=== PATIENT | male | born 1970 | race African-American/Black ===

== ENCOUNTER 2023-08-01 12:51 | Inpatient (IN) ==
[2023-08-01] MEDS ORDERED: SODIUM CHLORIDE 0.9% 500 ML IV STA (13:22)
[2023-08-01] MEDS ORDERED: ONDANSETRON INJ 2 MG/ML 2 ML VIAL IV STA (13:22)
--- NOTE | 2023-08-01 13:22 | ED Triage Note ---
Date of Service August 01, 2023 Provider in Triage Author: Gosia Carranza History of Present Illness This patient was briefly evaluated while in triage. An abbreviated physical exam was performed. This patient is a 52-year-old Male who presents to the ED for evaluation of abdominal pain and vomiting since this morning. No fevers. No chest pain or SOB. Denies urinary symptoms. Denies constipation or problems with his BMs. Physical Exam GENERAL: Non-toxic and in no acute distress. HEENT: Pupils equal. No obvious scleral icterus. HEART: Regular rate and rhythm. LUNGS: Clear to auscultation. No accessory muscle use. ABDOMEN: Soft, diffusely tender to palpation over the center of the abdomen. No guarding or rigidity. NEURO: Alert and oriented. No obvious neurological deficits on quick neuro exam. Initial orders for labs and / or imaging were placed and patient was placed in the waiting area until a bed is available. Please see further documentation for the full ED course.
[2023-08-01 14:14] LABS: Basophils # (auto) 0.03 K/uL (0.00-0.20); Basophils % (auto) 0.3 %; Hematocrit (blood only) 47.3 % (42.0-52.0); Immature Granulocytes # (auto) 0.04 K/uL (0.01-0.20); Immature Granulocytes % (auto) 0.4 %; Lymphocytes # (auto) 1.05 K/uL (1.20-3.40); Mean Corpuscular Hemoglobin 28.6 pg (25.0-34.0); Mean Corpuscular Hgb Conc 33.8 g/dL (32.0-36.0); Mean Corpuscular Volume 84.5 fL (80.0-100.0); Mean Platelet Volume 10.5 fL (9.4-12.4); Monocytes # (auto) 0.49 K/uL (0.11-0.59); Monocytes % (auto) 5.1 %; Neutrophils # (auto) 7.91 K/uL (1.40-6.50); Neutrophils % (auto) 83.2 %; Platelet Count 319 K/uL (130-400); RDW Coefficient of Variation 13.1 % (11.5-14.5); RDW Standard Deviation 40.4 fL (36.4-46.3); White Blood Count 9.52 K/ul (4.8-10.8)
[2023-08-01 14:21] LABS: Albumin Globulin Ratio 1.3 (0.9-2); Albumin Level 4.4 gm/dl (3.4-5.0); BUN Creatinine Ratio 10.8 (10-20); Bilirubin,Total 0.7 mg/dl (0.2-1.0); Calcium 9.8 mg/dl (8.6-10.3); Creatinine Clr Calc Pharmacy 60.3 ml/min; Est GFR (African American) 62.2 ml/min; Est GFR (Non-African American) 53.6 ml/min; Globulin 3.4 gm/dl (2.5-4.0); Potassium 3.9 mmol/L (3.5-5.1); Total Protein 7.8 gm/dl (6.0-8.3)
[2023-08-01 14:28] LABS: Troponin I High Sensitivity 4.7 pg/ml (0-20)
--- NOTE | 2023-08-01 14:29 | XRay Report ---
SINGLE VIEW CHEST CLINICAL HISTORY: Generalized abdominal pain. FINDINGS: A PA chest radiograph is obtained. No prior studies are available for comparison at the [facility] of dictation. The cardiomediastinal silhouette is unremarkable. The lungs and pleural spaces are cl ear. No pneumothorax is seen. The bony thorax is grossly intact. IMPRESSION: No active disease in the chest. ACT 112: Negative or not required by law. Electronically signed by: John Flores M.D. 08/01/2023 2:28 PM
[2023-08-01 14:33] LABS: Prothrombin Time 11.3 Seconds (9.0-12.0)
--- NOTE | 2023-08-01 15:20 | Electrocardiogram Report ---
Test Reason : Blood Pressure : / mmHG Vent. Rate : 104 BPM Atrial Rate : 104 BPM P-R Int : 198 ms QRS Dur : 088 ms QT Int : 326 ms P-R-T Axes : 060 051 058 degrees QTc Int : 428 ms Sinus tachycardia Nonspecific T wave abnormality Abnormal ECG No previous ECGs available Confirmed by Truman Avilez ([id number]) on 08/01/2023 3:20:23 PM Referred By: REFERRED SELF Confirmed By:Sharif Avilez
--- NOTE | 2023-08-01 17:37 | CT Scan Report ---
CT OF THE ABDOMEN AND PELVIS WITHOUT CONTRAST CLINICAL HISTORY: Abdominal pain and vomiting. Elevated creatinine. COMPARISON STUDY: No previous studies for comparison. TECHNIQUE: Axial images of the abdomen and pelvis were obtained without IV contrast. Images were revi ewed in the axial, sagittal, and coronal planes. Automated exposure control was utilized for the lauren dy. A dose lowering technique was utilized adhering to the principles of ALARA. FINDINGS: Lung bases are unremarkable. An 8 mm left ureteropelvic junction calculus results in mild t o moderate left hydronephrosis. There is moderate perinephric fluid. A few punctate left renal calcul i are present. There are no right ureteral calculi. Punctate phlebolith adjacent to the distal right ureter is present There is no right hydronephrosis. Evaluation of the remainder of the abdomen and pe lvis is suboptimal on this unenhanced exam. Liver, spleen, adrenal glands and pancreas are unremarkab le. There is no evidence for a bowel obstruction. There is no ascites or lymphadenopathy. IMPRESSION: 1. 8 mm left ureteropelvic junction calculus which results in mild to moderate left hydronephrosis wi th moderate perinephric fluid. 2. Several punctate left renal calculi. ACT 112: Negative or not required by law. Electronically signed by: Haja Bagley M.D. 08/01/2023 5:36 PM
[2023-08-01] MEDS ORDERED: SODIUM CHLORIDE 0.9% 500 ML IV ONE (18:00)
[2023-08-01] MEDS ORDERED: TAMSULOSIN HCL 0.4 MG CAP PO ONE (18:00)
[2023-08-01] MEDS ORDERED: KETOROLAC TROMETHAMINE 15 MG/ML VIAL IV STA (18:00)
--- NOTE | 2023-08-01 18:21 | Emergency Department Note ---
Impression & Plan Obstruction of left ureteropelvic junction due to stone ED Provider Note CHIEF COMPLAINT: Abdominal pain HISTORY OF PRESENTING ILLNESS: This 52-year-old male patient presents to the emergency department for evaluation of abdominal pain and vomiting that started this morning. Pain is worse in the left lower abdomen. No fevers or chills. Denies chest pain or shortness of breath. Denies any urinary symptoms. Denies any constipation or problems with his bowel movements. No previous similar symptoms. He has not taken anything for his symptoms yet. The patient is in town from [place] visiting his aunt for a couple of months. REVIEW OF SYSTEMS: See HPI for pertinent positives and pertinent negatives. ALLERGIES: NKDA MEDICATIONS: None PAST MEDICAL HISTORY: Denies significant past medical or surgical history other than appendectomy. PHYSICAL EXAM: VITALS: Vitals are noted on the nurse's note and reviewed by myself. GENERAL: Non toxic, no acute distress, non-diaphoretic. SKIN: Capillary refill <2 sec. EYES: PERRLA. EOMI. Conjunctivae without injection, sclerae without icterus. NOSE: Patent without discharge. MOUTH: Mucous membranes moist. Uvula midline. Airway patent. NECK: Supple without nuchal rigidity. HEART: Regular rate and rhythm without murmurs gallops or rubs. LUNGS: Clear to auscultation bilaterally without wheezes, rales or rhonchi. No retractions or accessory muscle use. ABDOMEN: Positive bowel sounds x 4. Normal tympanic percussion. Soft, diffusely tender to palpation over the central abdomen. No masses or organomegaly. Collado sign negative. No guarding or rebound tenderness. No CVA tenderness. No focal RLQ or LLQ tenderness. MUSCULOSKELETAL: No gross musculoskeletal defects. NEURO: Patient was alert and oriented. No focal neurological deficits. DIFFERENTIAL DIAGNOSIS: Differential diagnosis includes hepatitis, pancreatitis, cholecystitis, cholelithiasis, appendicitis, kidney stone, pyelonephritis, UTI, gastritis, gastroenteritis, mesenteric adenitis, obstruction, constipation, hernia, abdominal abscess, perforation, diverticulitis, IBD, ischemic colitis, abdominal aortic aneurysm, testicular torsion, prostatitis, or others. ED COURSE AND MEDICAL DECISION MAKING: EKG: EKG was interpreted by myself as sinus tachycardia at 104 bpm with no acute ST or T wave changes. MEDICATIONS GIVEN: A total of 1 L normal saline solution bolus. Zofran 4 mg IV, Toradol 15 mg IV, morphine 4 mg IV, Dilaudid 0.5 mg IV, and Flomax 0.4 mg p.o. INTERPRETATION OF LABS: I interpreted the labs with full lab results as below in the lab section of this note. CBC without leukocytosis, anemia, or thrombocytopenia. PT/INR was normal. Creatinine elevated at 1.48 with no known baseline. Glucose 139. CMP otherwise normal. Lipase normal. High-sensitivity troponin normal. Urinalysis with 1+ ketones, 3+ blood, 1+ proteins, but no evidence for infection. INTERPRETATION OF IMAGING: Imaging studies were interpreted by myself and read by radiology as per the imaging section of this note. Chest x-ray negative for acute cardiopulmonary etiology. CT scan of the abdomen pelvis without contrast showed an 8 mm left ureteropelvic junction calculus which results in mild to moderate left hydronephrosis with moderate perinephritic fluid. Several punctate left renal calculi. CONSULTATIONS: Dr. Valdivia of urology. On-call hospitalist. MDM SUMMARY: The patient was seen during a time of extreme volume and extreme acuity. Nursing triage protocols were initiated with IV lock, labs, and/or imaging studies conducted by protocol in the triage area. The patient was initially evaluated in a triage room and then re-examined once they were taken back to an exam room. Laboratory studies with a mildly elevated creatinine and glucose, but otherwise unremarkable. Chest x-ray was normal. CT scan of the abdomen pelvis showed an 8 mm left ureteropelvic junction calculus with moderate left hydronephrosis. Urinalysis without evidence for infection. The patient was medicated with 1 L normal saline solution bolus, Toradol, morphine, Dilaudid, Zofran, and Flomax. The patient still had some discomfort from the large kidney stone and I feel the patient requires admission for further management of the large stone with inadequate pain control. The patient is from [place], but will be staying locally for the next couple of months visiting his aunt. I spoke with Dr. Valdivia of urology who stated that if the patient's pain could not be controlled, he could be admitted by medicine for pain control and urology could see if they would be able to place a stent tomorrow. The patient is to be n.p.o. after midnight and order was placed. I also placed an order to have his urine strained to collect the stone if he was able to pass it. I spoke with the on-call hospitalist who agreed to admit the patient for further management. The patient was educated on the treatment plan and the discharge instructions. The patient was discharged home in stable condition. DIAGNOSIS: 8 mm left ureteropelvic kidney stone with hydronephrosis Past Med/Surg History Social History Smoking Status: Never smoker Preferred Language: Japanese Feels Safe at Home: Yes Allergies Allergies Allergy/AdvReac Type Severity Reaction Status Date / Time No Known Allergies Allergy Verified 08/01/23 19:46 Home Meds Home Medications Medication Instructions Recorded Confirmed No Known Home Medications 08/01/23 08/01/23 Results & Data (ED) Vital Signs Vital Signs - 24 hr 08/01/23 13:20 08/01/23 17:24 08/01/23 17:40 Temperature 36.8 C Temperature Source Temporal Artery Scan Pulse Rate 107 H Pulse Rate [Finger] 95 H Respiratory Rate 20 18 Respiratory Effort / Characteristics Non-Labored Respiratory Depth Normal Normal Respiratory Pattern Blood Pressure 158/111 H Blood Pressure [Right Arm] 167/116 H Blood Pressure Mean 126 Blood Pressure Mean [Right Arm] 133 Blood Pressure Position [Right Arm] Sitting Pulse Oximetry 98 99 99 Oxygen Delivery Method Room Air Room Air Sepsis Recent Fever Within 48 Hours No Sepsis New/Unexplained Change in Mental Status N/A Sepsis Action Taken by Nursing No Action Required 08/01/23 19:26 Temperature Temperature Source Pulse Rate Pulse Rate [Finger] 99 H Respiratory Rate 14 Respiratory Effort / Characteristics Non-Labored Spontaneous Respiratory Depth Normal Respiratory Pattern Regular Blood Pressure Blood Pressure [Right Arm] 153/87 H Blood Pressure Mean Blood Pressure Mean [Right Arm] 109 Blood Pressure Position [Right Arm] Pulse Oximetry 95 Oxygen Delivery Method Room Air Sepsis Recent Fever Within 48 Hours Sepsis New/Unexplained Change in Mental Status Sepsis Action Taken by Nursing Laboratory Data 08/01/23 13:35 08/01/23 13:35 Lab Results 08/01/23 08/01/23 Range/Units 13:35 18:04 WBC 9.52 (4.8-10.8) K/ul RBC 5.60 (4.70-6.10) M/uL Hgb 16.0 (14.0-18.0) g/dl Hct 47.3 (42.0-52.0) % MCV 84.5 (80.0-100.0) fL MCH 28.6 (25.0-34.0) pg MCHC 33.8 (32.0-36.0) g/dL RDW Std Deviation 40.4 (36.4-46.3) fL RDW Coeff of Daniel 13.1 (11.5-14.5) % Plt Count 319 (130-400) K/uL MPV 10.5 (9.4-12.4) fL Immature Gran % (Auto) 0.4 % Neut % (Auto) 83.2 % Lymph % (Auto) 11.0 % [place] % (Auto) 5.1 % Eos % (Auto) 0.0 % Baso % (Auto) 0.3 % Neut # (Auto) 7.91 H (1.40-6.50) K/uL Lymph # (Auto) 1.05 L (1.20-3.40) K/uL [place] # (Auto) 0.49 (0.11-0.59) K/uL Eos # (Auto) 0.00 (0.00-0.50) K/uL Baso # (Auto) 0.03 (0.00-0.20) K/uL Immature Gran # (Auto) 0.04 (0.01-0.20) K/uL PT 11.3 (9.0-12.0) Seconds INR 1.0 (0.9-1.1) Sodium 136 (136-145) mmol/L Potassium 3.9 (3.5-5.1) mmol/L Chloride 101 (98-107) mmol/L Carbon Dioxide 24 (21-32) mmol/L Anion Gap 11 (3-11) BUN 16 (6-23) mg/dl Creatinine 1.48 H (0.6-1.4) mg/dl Est Cr Clr Drug Dosing 60.3 ml/min Est GFR ( Amer) 62.2 ml/min Est GFR (Non-Af Amer) 53.6 ml/min BUN/Creatinine Ratio 10.8 (10-20) Glucose 139 H (70-99(Fasting)) mg/dl Calcium 9.8 (8.6-10.3) mg/dl Total Bilirubin 0.7 (0.2-1.0) mg/dl AST 17 (13-39) U/L ALT 16 (7-52) U/L Alkaline Phosphatase 73 (34-104) U/L Troponin I High Sens 4.7 (0-20) pg/ml Total Protein 7.8 (6.0-8.3) gm/dl Albumin 4.4 (3.4-5.0) gm/dl Globulin 3.4 (2.5-4.0) gm/dl Albumin/Globulin Ratio 1.3 (0.9-2) Lipase 4 L (11-82) U/L Urine Color Yellow Urine Appearance Clear (Clear) Urine pH 5.5 (4.5-7.5) Ur Specific [place] 1.023 (1.000-1.030) Urine Protein 1+ H (Negative) Urine Glucose (UA) Negative (Negative) Urine Ketones 1+ H (Negative) Urine Blood 3+ H (Negative) Urine Nitrite Negative (Negative) Urine Bilirubin Negative (Negative) Urine Urobilinogen Negative (Negative) Ur Leukocyte Esterase Negative (Negative) Urine WBC (Auto) 1-5 (0-5) /hpf Urine RBC (Auto) >30 H (0-4) /hpf U Hyaline Cast (Auto) 1-5 (0-5) /lpf U Epithel Cells (Auto) 0-5 (0-5) /lpf Urine Bacteria (Auto) Negative (Negative) Administered Medications Lactated Ringer's (Lr) 1,000 mls @ 100 mls/hr IV .Q10H WILL Stop: 08/02/23 16:29 Last Admin: 08/01/23 21:08 Dose: 100 mls/hr Documented By: DIPTI Discontinued Medications Acetaminophen (Acetaminophen 325 Mg Tab) 650 mg PO NOW STA Stop: 08/01/23 20:21 Last Admin: 08/01/23 20:52 Dose: 650 mg Documented By: MED Hydromorphone HCl (Hydromorphone Inj 0.5 Mg/0.5 Ml Syr) 0.5 mg IV NOW STA Stop: 08/01/23 19:16 Last Admin: 08/01/23 19:21 Dose: 0.5 mg Documented By: MED Sodium Chloride (Nss) 500 mls @ 999 mls/hr IV .Q31M STA Stop: 08/01/23 13:52 Last Infusion: 08/01/23 14:14 Dose: Infused Documented By: Admin: 08/01/23 13:43 Dose: 999 mls/hr Documented By: JANET Sodium Chloride (Nss) 500 mls @ 999 mls/hr IV .Q31M ONE Stop: 08/01/23 18:30 Last Infusion: 08/01/23 18:40 Dose: Infused Documented By: Admin: 08/01/23 18:09 Dose: 999 mls/hr Documented By: RUBINA Ketorolac Tromethamine (Ketorolac Tromethamine 15 Mg/Ml Vial) 15 mg IV NOW STA Stop: 08/01/23 18:01 Last Admin: 08/01/23 18:08 Dose: 15 mg Documented By: RUBINA Morphine Sulfate (Morphine Sulfate 4 Mg/Ml 1 Ml Carp\Vial) 4 mg IV NOW STA Stop: 08/01/23 18:23 Last Admin: 08/01/23 18:35 Dose: 4 mg Documented By: RUBINA Ondansetron HCl (Ondansetron Inj 2 Mg/Ml 2 Ml Vial) 4 mg IV NOW STA Stop: 08/01/23 13:23 Last Admin: 08/01/23 13:42 Dose: 4 mg Documented By: JANET Tamsulosin HCl (Tamsulosin Hcl 0.4 Mg Cap) 0.4 mg PO NOW ONE Stop: 08/01/23 18:01 Last Admin: 08/01/23 18:08 Dose: 0.4 mg Documented By: RUBINA Imaging Data Radiologist's Impression: Chest X-Ray 08/01/23 13:22 SINGLE VIEW CHEST CLINICAL HISTORY: Generalized abdominal pain. FINDINGS: A PA chest radiograph is obtained. No prior studies are available for comparison at the time of dictation. The cardiomediastinal silhouette is unremarkable. The lungs and pleural spaces are clear. No pneumothorax is seen. The bony thorax is grossly intact. IMPRESSION: No active disease in the chest. ACT 112: Negative or not required by law. Electronically signed by: John Flores M.D. 08/01/2023 2:28 PM Abdomen/Pelvis CT 08/01/23 16:15 CT OF THE ABDOMEN AND PELVIS WITHOUT CONTRAST CLINICAL HISTORY: Abdominal pain and vomiting. Elevated creatinine. COMPARISON STUDY: No previous studies for comparison. TECHNIQUE: Axial images of the abdomen and pelvis were obtained without IV contrast. Images were reviewed in the axial, sagittal, and coronal planes. Automated exposure control was utilized for the study. A dose lowering technique was utilized adhering to the principles of ALARA. FINDINGS: Lung bases are unremarkable. An 8 mm left ureteropelvic junction calculus results in mild to moderate left hydronephrosis. There is moderate perinephric fluid. A few punctate left renal calculi are present. There are no right ureteral calculi. Punctate phlebolith adjacent to the distal right ureter is present There is no right hydronephrosis. Evaluation of the remainder of the abdomen and pelvis is suboptimal on this unenhanced exam. Liver, spleen, adrenal glands and pancreas are unremarkable. There is no evidence for a bowel obstruction. There is no ascites or lymphadenopathy. IMPRESSION: 1. 8 mm left ureteropelvic junction calculus which results in mild to moderate left hydronephrosis with moderate perinephric fluid. 2. Several punctate left renal calculi. ACT 112: Negative or not required by law. Electronically signed by: Haja Bagley M.D. 08/01/2023 5:36 PM Discharge Plan Visit Data Chief Complaint: Abdominal Pain Stated Complaint: ABD PAINS ED Provider: Rod Guzman ED Midlevel Provider: Gosia Carranza Discharge Problem: Obstruction of left ureteropelvic junction due to stone Patient Disposition: Admitted As Inpatient Condition: Good Discharge Instructions Interventions: ED Discharge Assessment Last Done: 08/01/23 21:02
[2023-08-01 18:22] LABS: Appearance Urine Clear (Clear); Bacteria Urine Automated Negative (Negative); Bilirubin Urine Negative (Negative); Blood Urine 3+ (Negative); Color Urine Yellow; Epithelial Cell Urine Auto 0-5 /lpf (0-5); Glucose Urine UA Negative (Negative); Ketones Urine 1+ (Negative); Leukocyte Esterase Urine Negative (Negative); Nitrite Urine Negative (Negative); Protein Urine 1+ (Negative); RBC Urine Automated >30 /hpf (0-4); Specific Gravity Urine 1.023 (1.000-1.030); Urobilinogen Urine Negative (Negative); pH Urine 5.5 (4.5-7.5)
[2023-08-01] MEDS ORDERED: MoRPHine SULFATE 4 MG/ML 1 ML CARP\\VIAL IV STA (18:22)
[2023-08-01] MEDS ORDERED: HYDROmorphone INJ 0.5 MG/0.5 ML SYR IV STA (19:15)
--- NOTE | 2023-08-01 20:04 | History & Physical Report ---
Date of Service August 01, 2023 Assessment & Plan (1) Obstruction of left ureteropelvic junction due to stone: Plan: -Admit to med/tele -Currently hemodynamically stable and stable on RA -Presented to the ED with acute onset of left lower abd pain and associate na usea/vomiting -Found to have an 8 mm stone at left ureteropelvic with moderate hydronephrosis and perinephric fluid -UA does not appear infected -Unsure of baseline Cr, currently at 1.48 -Continue pain control with tylenol and morphine -Continue flomax -PRN zofran for nausea/vomiting -Urine strainer ordered -Will continue light IV fluids overnight for hydration -Urology consult placed -Regular diet until midnight then NPO except meds in case of OR with Urology tomorrow -BL SCD's for DVT PPX -AM CBC, BMP, mag, PT/INR (2) Abdominal pain: Plan: -Likely due to his known left ureteropelvic stone -Labs and CT of the abd/pelvis without other signs to suggest other etiology at this time -Rest of care per obstrcution plan (3) Nausea & vomiting: Plan: -Continue prn zofran Plan The patient was discussed with Dr. Piedra at the time of the admission History of Present Illness Chief Complaint: Vomiting Primary Care Provider: NO PCP Tylor is a 52 year old male who lives in [place] but is in the [place] visiting family with no significant PMH who presented to the [facility] ED on 08/01 with multiple episodes of nausea and vomiting. He remained stable in the ED. Labs including CBC and CMP were unremarkable. UA shows 1+ protein, 1+ ketones, 3+ blood, and > 30 RBC but no signs of infection. Chest xray was negative for acute findings. CT of the abd/pelvis wo con was read as "1. which results in mild to moderate left hydronephrosis with moderate perinephric fluid. 2. Several punctate left renal calculi.". The patient was given 1L NSS, 15 mg IV toradol, 4 mg IV morphine, 0.5 mg IV dilaudid, 4 mg IV zofran, and 0.4 mg PO tamsulosin without significant improvement in his symptoms. The ED spoke with Urology who recommended admission to medicine for pain control, NPO at midnight, and possible stent placement tomorrow. AT the time of the exam the patient was lying in bed in no acute distress. He confirms that he has no significant PMH. He had been in his normal state of health until this am when he started to develop left lower abdominal pain. He s tates that at it's worst it is a 10/10, intermittent, sharp/stabbing, and has radiated to the middle of his abdomen at times. He tried to drink coffee and soda earlier today but vomited after each and has not tried to eat solid food today. He denies recent fever, chills, chest pain, SOB, hemoptysis, dysuria, hematuria, melena, diarrhea, LE swelling and recent trauma. He does not use tobacco or alcohol. His pain is currently a 3/10 after additional pain medications in the ED. He is a [employer] and would want his Aunt, Stella Jack ([phone]), to make medical decisions for him if he could not make them himself. Please refer to Dr. Piedra's attestation for any changes to the treatment plan Allergies Allergy/AdvReac Type Severity Reaction Status Date / Time No Known Allergies Allergy Verified 08/01/23 19:46 Home Medications Medication Instructions Recorded Confirmed Type No Known Home Medications 08/01/23 08/01/23 History Past Med/Surg History Social History Smoking Status: Never smoker Preferred Language: Estonian Feels Safe at Home: Yes Physical Exam Physical Exam: Physical Exam: General: In no acute distress, stated age, well-nourished, good hygiene HEENT: Normocephalic, atraumatic, no scleral icterus, pupils around round, symmetrical, and reactive to light, moist mucus membranes, trachea midline, no thyromegaly Chest/Pulm: No respiratory distress, symmetrical chest expansion, clear breath sounds throughout Cardiac: RRR, no murmurs noted Abdomen: Negative for ascites and bruising, normoactive bowel sounds, soft, mild tender to palpation in the LLQ and RLQ but without rebound tenderness : Negative CVA tenderness BL Musculoskeletal: Symmetrical and without signs of acute trauma, upper and lower extremities with full ROM, no atrophy, spasticity, or flaccidity Extremities: Radial, dorsalis pedis, and posterior tibial pulses are intact and symmetrical, no edema noted in the BL LE's Skin: Warm, dry, no rashes , lesions, or scars noted Neuro: Alert and oriented to person, place, month, year, and president, no focal defects, no tremors noted Psych: No acute distress, calm and cooperative during the exam Results & Data Results & Data Vital Signs (Past 12 Hours) Vital Signs Temp Pulse Pulse Resp BP BP Pulse Ox 08/01/23 19:26 99 H 14 153/87 H 95 08/01/23 17:40 99 08/01/23 17:24 95 H 18 167/116 H 99 08/01/23 13:20 36.8 C 107 H 20 158/111 H 98 O2 Del Method 08/01/23 19:26 Room Air 08/01/23 17:40 Room Air 08/01/23 17:24 Room Air 08/01/23 13:20 Laboratory Results Abnormal lab results 08/01/23 08/01/23 Range/Units 13:35 18:04 Neut # (Auto) 7.91 H (1.40-6.50) K/uL Lymph # (Auto) 1.05 L (1.20-3.40) K/uL Creatinine 1.48 H (0.6-1.4) mg/dl Glucose 139 H (70-99(Fasting)) mg/dl Lipase 4 L (11-82) U/L Urine Protein 1+ H (Negative) Urine Ketones 1+ H (Negative) Urine Blood 3+ H (Negative) Urine RBC (Auto) >30 H (0-4) /hpf Diagnostic Findings Chest X-Ray 08/01/23 13:22 SINGLE VIEW CHEST CLINICAL HISTORY: Generalized abdominal pain. FINDINGS: A PA chest radiograph is obtained. No prior studies are available for comparison at the time of dictation. The cardiomediastinal silhouette is unremarkable. The lungs and pleural spaces are clear. No pneumothorax is seen. The bony thorax is grossly intact. IMPRESSION: No active disease in the chest. ACT 112: Negative or not required by law. Electronically signed by: John Flores M.D. 08/01/2023 2:28 PM Abdomen/Pelvis CT 08/01/23 16:15 CT OF THE ABDOMEN AND PELVIS WITHOUT CONTRAST CLINICAL HISTORY: Abdominal pain and vomiting. Elevated creatinine. COMPARISON STUDY: No previous studies for comparison. TECHNIQUE: Axial images of the abdomen and pelvis were obtained without IV contrast. Images were reviewed in the axial, sagittal, and coronal planes. Automated exposure control was utilized for the study. A dose lowering technique was utilized adhering to the principles of ALARA. FINDINGS: Lung bases are unremarkable. An 8 mm left ureteropelvic junction calculus results in mild to moderate left hydronephrosis. There is moderate perinephric fluid. A few punctate left renal calculi are present. There are no right ureteral calculi. Punctate phlebolith adjacent to the distal right ureter is present There is no right hydronephrosis. Evaluation of the remainder of the abdomen and pelvis is suboptimal on this unenhanced exam. Liver, spleen, adrenal glands and pancreas are unremarkable. There is no evidence for a bowel obstruction. There is no ascites or lymphadenopathy. IMPRESSION: 1. 8 mm left ureteropelvic junction calculus which results in mild to moderate left hydronephrosis with moderate perinephric fluid. 2. Several punctate left renal calculi. ACT 112: Negative or not required by law. Electronically signed by: Haja Bagley M.D. 08/01/2023 5:36 PM ECG Additional Comments: Sinus tachycardia Nonspecific T wave abnormality Abnormal ECG No previous ECGs available Confirmed by Truman Avilez ([id number]) on 08/01/2023 3:20:23 PM Code Status & VTE Plan Code Status Full code VTE Prophylaxis Plan VTE Prophylaxis will be ordered: Yes Supervising Physician Co-Signing Physician Notes Patient seen and examined, chart reviewed, case discussed with FADIA Hathaway and I agree with the assessment and plan as above. In brief, patient is a 52yo male presenting with nausea and vomiting. Found to have and 8mm obstructing stone at the left UPJ with mild to moderate left sided hydronephrosis with mild perinephric fluid. UA without infection. Cr=1.48 with unknown baseline. On exam he is resting comfortably, NAD Skin - warm, dry, intact HEENT - MMM, Neck supple Heart - +S1/S2, regular, no m/r/g Lungs - CTA Abd - mild left sided discomfort, no rebound/guarding/peritonitis Ext - warm, well perfused Labs and images reviewed Assessment/Plan -Admit to medical -Continue analgesics and anti-emetics as needed -Flomax -IVF -Urology consultation appreciated -Remainder of plan as above PG Care Time/CCT Total # of Minutes Spent Total Time Spent with Patient: Total time spent is greater than 50% in coordination of care (as documented) at patient's floor/unit and/or counseling patient: [place] [address] INT INP/OBS CARE 2/55MIN Patient Type New Medical Decision Making Moderate Complexity Diagnoses Obstruction of left ureteropelvic junction due to stone N20.1 Abdominal pain R10.9 Nausea & vomiting R11.2
[2023-08-01] MEDS ORDERED: ACETAMINOPHEN 325 MG TAB PO STA (20:20)
[2023-08-01] MEDS ORDERED: ONDANSETRON INJ 2 MG/ML 2 ML VIAL IV PRN (20:24)
[2023-08-01] MEDS ORDERED: NALOXONE HCL 0.4 MG/1 ML VIAL/CARP IV PRN (20:24)
[2023-08-01] MEDS: LACTATED RINGER'S 1,000 ML IV SCH (21:08)
[2023-08-01] MEDS ORDERED: POLYETHYLENE (MIRALAX) 17 GM PACK PO PRN (23:12)
[2023-08-02] MEDS: MoRPHine SULFATE 2 MG/ML CARP IV PRN (00:49)
[2023-08-02] MEDS ORDERED: HYDROmorphone INJ 1 MG/ML SYRINGE IV STA (02:57)
[2023-08-02 05:35] LABS: Basophils # (auto) 0.02 K/uL (0.00-0.20); Basophils % (auto) 0.2 %; Eosinophils # (auto) 0.13 K/uL (0.00-0.50); Eosinophils % (auto) 1.3 %; Hematocrit (blood only) 43.6 % (42.0-52.0); Hemoglobin 14.7 g/dl (14.0-18.0); Immature Granulocytes # (auto) 0.03 K/uL (0.01-0.20); Immature Granulocytes % (auto) 0.3 %; Lymphocytes # (auto) 2.15 K/uL (1.20-3.40); Mean Corpuscular Hemoglobin 28.7 pg (25.0-34.0); Mean Corpuscular Hgb Conc 33.7 g/dL (32.0-36.0); Mean Corpuscular Volume 85.2 fL (80.0-100.0); Mean Platelet Volume 10.8 fL (9.4-12.4); Monocytes # (auto) 1.12 K/uL (0.11-0.59); Monocytes % (auto) 11.5 %; Neutrophils # (auto) 6.33 K/uL (1.40-6.50); Neutrophils % (auto) 64.7 %; Platelet Count 258 K/uL (130-400); RDW Standard Deviation 40.6 fL (36.4-46.3); Red Blood Count 5.12 M/uL (4.70-6.10); White Blood Count 9.78 K/ul (4.8-10.8)
[2023-08-02 05:38] LABS: BUN Creatinine Ratio 10.8 (10-20); Creatinine Clr Calc Pharmacy 54.8 ml/min; Est GFR (African American) 57.9 ml/min; Est GFR (Non-African American) 49.9 ml/min; Magnesium 1.9 mg/dl (1.7-2.4); Potassium 3.7 mmol/L (3.5-5.1)
[2023-08-02 05:55] LABS: Prothrombin Time 11.4 Seconds (9.0-12.0)
[2023-08-02] MEDS: LACTATED RINGER'S 1,000 ML IV SCH (06:25)
--- NOTE | 2023-08-02 07:47 | Urology Consultation ---
<Statement entered by Dominguez Woodruff MD - 08/02/23 13:07> I have discussed Mr. Fitzgerald' case with SHANNAN Castorena and agree with the above documentation. Ongoing left-sided flank pain related to an obstructing stone. We will plan on cystoscopy, left retrograde pyelogram, left ureteral stent placement to address the pain. -Dominguez Woodruff MD. Date of Consultation August 02, 2023 Assessment & Plan (1) Obstruction of left ureteropelvic junction due to stone: (2) Renal colic: Plan 52yo/M admitted with intractable left flank pain secondary to an obstructing 8 mm left UPJ stone He is afebrile and hemodynamically stable. Labs today show no leukocytosis and creatinine up from 1.48-1.57 today (baseline unknown). Urinalysis not suggestive of infection. We reviewed his CT abdomen pelvis findings. We discussed options for acute stone management with cystoscopy and stent placement. Ureteral stents were discussed as well as postoperative issues and pain management. He is aware a second procedure will be needed for stone treatment in the future. We also discussed that if his pain is well-controlled we can arrange one procedure as an outpatient for stone management. Risks and benefits of each were discussed. All questions were answered. He prefers to proceed with stent placement today for pain management. Will plan to proceed to OR today for cystoscopy, left retrograde pyelogram, left ureteral stent placement with Dr. Woodruff. Risks and benefits discussed as per consent. Will cover with IV Ancef preoperatively. Keep NPO. Continue supportive care, analgesics, and antiemetics as needed. Urology will follow. History of Present Illness Attending Physician: Mark Mckinney History of Present Illness 52-year-old male with no significant past medical history presented to the ED on 08/01/2023 with an acute onset of left lower abd pain and associate nausea/vomiting. On arrival he was afebrile, hypertensive, otherwise stable. Labs showing no leukocytosis and creatinine of 1.48. Urinalysis with 3+ blood,>30 RBC, negative nitrite, negative LE, negative bacteria. CT abdomen pelvis performed and demonstrated an 8 mm left ureteropelvic junction calculus which results in mild to moderate left hydronephrosis with moderate perinephric fluid. ED course: 1L NSS, 15 mg IV toradol, 4 mg IV morphine, 0.5 mg IV dilaudid, 4 mg IV zofran, and 0.4 mg PO tamsulosin without significant improvement in his symptoms. He was admitted to medicine service for continued care and pain management. Patient examined at bedside this AM in the ED. Awake, resting in bed on arrival. No acute distress. Left lower abdominal/flank pain comes and goes. Has been managing with medication. Denies fevers or chills. No nausea or vomiting this morning. Voiding without issue. Denies hematuria or dysuria. Has been NPO. Last ate around 8:30 PM last night per his report. Of note, patient is from [place] but is in the visiting family. Reports he will be in the area for a few months. Denies prior urological history. Denies history of stones. Allergies Allergy/AdvReac Type Severity Reaction Status Date / Time No Known Allergies Allergy Verified 08/01/23 19:46 Home Medications Medication Instructions Recorded Confirmed Type No Known Home Medications 08/01/23 08/01/23 History Patient History Social History Smoking Status: Never smoker Hx Alcohol Use: No Hx Substance Use: No Preferred Language: Lao Communication Ability: Effective Painting Supervisor Required: No Beliefs That Will Affect Care: None Current Living Situation: Alone Feels Safe at Home: Yes Safety Concerns: Feels Safe At This Time Assistive Devices: None Review of Systems Review of Systems: All systems reviewed & are unremarkable except as noted in HPI & below Physical Exam Constitutional: well developed and well nourished; no acute distress Respiratory: no respiratory distress and no labored breathing Gastrointestinal (Abdomen): Left lower abd/flank discomfort with palpation Musculoskeletal: Head/Neck/Chest: normocephalic Skin: No visible rashes or lesions to exposed skin areas Neurologic: moves all extremities and awake Psychiatric: A+Ox3, euthymic affect Results & Data Vital Signs (Past 12 Hours) Vital Signs Pulse Pulse Resp BP BP Pulse Ox O2 Del Method 08/02/23 07:11 94 H 08/02/23 06:00 67 16 133/100 99 08/02/23 04:00 75 25 H 147/106 H 98 08/02/23 03:21 79 20 158/113 H 92 08/02/23 02:47 95 H 14 168/123 H 95 08/02/23 02:24 91 H 08/02/23 02:05 89 20 93 08/02/23 00:04 90 14 151/111 H 96 08/01/23 21:10 95 Room Air 08/01/23 21:09 85 18 171/119 H 94 Room Air PG Care Time/CCT Total # of Minutes Spent Total Time Spent with Patient: Total time spent is greater than 50% in coordination of care (as documented) at patient's floor/unit and/or counseling patient: Coding Level of Care Code 07260 IN/OBS CONSULT LVL 4,60M Diagnoses Obstruction of left ureteropelvic junction due to stone N20.1 Renal colic N23
[2023-08-02] MEDS: TAMSULOSIN HCL 0.4 MG CAP PO SCH (07:48)
[2023-08-02] MEDS ORDERED: ceFAZolin 2000MG 2,000 MG/15 ML SYR IV ONE (09:21)
[2023-08-02] MEDS ORDERED: fentaNYL citrate PF 100 MCG/2 ML VIAL ONE (13:43)
[2023-08-02] MEDS ORDERED: PROPOFOL IV EMULSION 10 MG/ML 20 ML VIAL IV ONE (13:43)
[2023-08-02] MEDS ORDERED: ONDANSETRON INJ 2 MG/ML 2 ML VIAL ONE (13:43)
[2023-08-02] MEDS ORDERED: diphenhydrAMINE 50 MG/ML VIAL ONE (13:43)
[2023-08-02] MEDS ORDERED: DEXAMETHASONE SOD INJ 4 MG/ML VIAL ONE (13:43)
[2023-08-02] MEDS ORDERED: MIDAZOLAM HCL 1 MG/ML 2ML VIAL ONE (13:43)
[2023-08-02] MEDS ORDERED: LIDOCAINE 2% 2 ML VIAL/AMP(20MG/ML) INFIL ONE (13:43)
[2023-08-02] MEDS ORDERED: ONDANSETRON INJ 2 MG/ML 2 ML VIAL IV PRN (14:20)
[2023-08-02] MEDS ORDERED: ATROPINE SULFATE 0.1 MG/ML 10ML SYR IV PRN (14:20)
[2023-08-02] MEDS ORDERED: fentaNYL citrate PF 100 MCG/2 ML VIAL IV PRN (14:20)
[2023-08-02] MEDS ORDERED: ePHEDrine sulfate 50 MG/ML AMP IV PRN (14:20)
--- NOTE | 2023-08-02 14:23 | Anesthesiology Consultation ---
Date of Service August 02, 2023 Assessment & Plan Chart Review Chart Review: Acceptable Risk for Surgery and Patient NOT seen in Pre Admission Testing Consults Requested none ASA ASA2 Proposed Anesthesia Anesthesia Type: MAC Risk / Benefits Reviewed With: PT / POA / Parent / Guardian, Accepts Plan and Informed Consent Obtained History Surgery Operation Date: 08/02/23 11:50 Proposed Procedures p Left Cystoscopy, Left Ureteral Stent Placement(Left) - Dominguez Woodruff MD Height/Weight Height: 5 ft 5 in Weight: 82.5 kg Allergies Allergy/AdvReac Type Severity Reaction Status Date / Time No Known Allergies Allergy Verified 08/01/23 19:46 Medications Home Medications Medication Instructions Recorded Confirmed Last Taken No Known Home Medications 08/01/23 08/01/23 Unknown Active Medications Generic Name Dose Route Start Last Admin Trade Name Freq PRN Reason Stop Dose Admin Lactated Ringer's 1,000 mls @ 100 mls/hr 08/01/23 20:30 08/02/23 06:25 Lr IV 08/02/23 16:29 100 mls/hr .Q10H WILL Administration Morphine Sulfate 2 mg 08/01/23 20:20 08/02/23 00:49 Morphine Sulfate 2 Mg/Ml Carp IV 08/15/23 20:19 2 mg Q3H PRN Administration Pain (5+) Tamsulosin HCl 0.4 mg 08/02/23 09:00 08/02/23 07:48 Tamsulosin Hcl 0.4 Mg Cap PO 09/01/23 08:59 0.4 mg QAM WILL Administration NPO Date Last Intake of Fluids: 08/01/23 Date Last Intake of Solids: 08/01/23 Exercise / Class Metabolic Activity II 4-5 Yardwork/Stairs/Walk up hill Past Anesthesia History No Hx of Anesthesia Complications and No Family Hx of Anesthesia Complications History of PONV No Hx of PONV and No Hx of Motion Sickness Social History Smoking Status: Never smoker Hx Alcohol Use: No Hx Substance Use: No Review of Systems ROS Unobtainable: All systems reviewed & are unremarkable except as noted in HPI & below Physical Exam Vital Signs Last Vital Signs Temp 36.4 C L 08/02/23 14:07 Pulse 104 H 08/02/23 14:07 Resp 20 08/02/23 14:07 BP 154/105 H 08/02/23 14:07 Pulse Ox 97 08/02/23 14:07 O2 Del Method Room Air 08/02/23 14:07 ENMT Mouth: no TMJ abnormality Thyromental Distance: > or= 3.5 Finger Breadths Mallampati Class: II Neck normal visual inspection and trachea midline; neck extension not limited Respiratory normal respiratory effort Auscultation: lungs clear to auscultation bilaterally Cardiovascular Rate/Rhythm: regular rate and regular rhythm Heart Sounds: no murmur Musculoskeletal Spine: normal cervical ROM Extremities: full ROM of extremities Neurologic moves all extremities Psychiatric Orientation: alert and oriented x 3 Testing Laboratory Results 08/02/23 04:09 08/02/23 04:09 PT 11.4 Seconds (9.0-12.0) 08/02/23 04:09 INR 1.0 (0.9-1.1) 08/02/23 04:09 Urine Color Yellow 08/01/23 18:04 Urine Appearance Clear (Clear) 08/01/23 18:04 Urine pH 5.5 (4.5-7.5) 08/01/23 18:04 Ur Specific [place] 1.023 (1.000-1.030) 08/01/23 18:04 Urine Protein 1+ (Negative) H 08/01/23 18:04 Urine Glucose (UA) Negative (Negative) 08/01/23 18:04 Urine Ketones 1+ (Negative) H 08/01/23 18:04 Urine Nitrite Negative (Negative) 08/01/23 18:04 Ur Leukocyte Esterase Negative (Negative) 08/01/23 18:04 Urine WBC (Auto) 1-5 /hpf (0-5) 08/01/23 18:04 Urine RBC (Auto) >30 /hpf (0-4) H 08/01/23 18:04 U Hyaline Cast (Auto) 1-5 /lpf (0-5) 08/01/23 18:04 U Epithel Cells (Auto) 0-5 /lpf (0-5) 08/01/23 18:04 Urine Bacteria (Auto) Negative (Negative) 08/01/23 18:04
[2023-08-02] MEDS ORDERED: KETOROLAC 30 MG/ML VIAL ONE (14:47)
[2023-08-02] MEDS ORDERED: DIATRIZOATE MEGLUMINE 30% 100ML VIAL INSTIL ONE (14:53)
--- NOTE | 2023-08-02 15:06 | Operative Report ---
PG Post Operative Report Pre & Post Diagnosis Operation Date: 08/02/23 11:50 Preoperative diagnosis: Left ureteral stone Postoperative diagnosis: Left ureteral stone I identified the patient and participated in the time-out.: Yes Procedure Operation Date: 08/02/23 11:50 Cystoscopy, left retrograde pyelogram, left ureteral stent placement Surgeon Dominguez Woodruff MD Rn On Site None Estimated Blood Loss 0 Findings Consistent with Post-Op Diagnosis Specimens None Drains 6 [place] by 26 cm double-J ureteral stent in the left ureter Anesthesia Type MAC Complications none Disposition Accompanied Patient To Recovery: Yes Disposition: Recovery Room Indications This is a 52-year-old male who presented to the emergency department with left- sided flank pain and was found to have an 8 mm stone in the proximal left ureter. He is being brought to the OR for stent placement to address his pain. Description of Procedure The patient was identified in the holding area and informed consent was confirmed. He was marked on the left side, then was taken to the operating room where anesthesia was initiated. He was placed in the dorsal lithotomy position with all pressure points appropriately padded. He was prepped and draped in the usual sterile fashion and a preoperative timeout was performed. A well-lubricated cystoscope was inserted per urethra and panendoscopy was performed. The pendulous urethra was normal with no strictures or mucosal abnormalities. The prostate was of normal size. His bladder appeared grossly normal with no tumors or stones appreciated. Ureteral orifices were in orthotopic position bilaterally. I attempted to intubate the left ureteral orifice with a 5 [place] open-ended catheter, however due to the angulation was somewhat small caliber of the UO, instead elected to use the catheter to direct a wire up to the kidney. There was a shadow in the proximal ureter suspicious for the stone. Once the wire was in place, the open-ended catheter was advanced to the level of the kidney. The wire was withdrawn and some urine was aspirated to confirm good position. Contrast dye was injected to opacify the collecting system. A 0.038 inch zip wire was advanced up to the kidney under fluoroscopic guidance. Over the wire, a 6 [place]ian x 26 cm double-J ureteral stent was advanced. When the wire was removed, there was a good curl in the kidney under fluoroscopic guidance. A curl was visualized in the bladder with the cystoscope. At this point the bladder was drained and all instrumentation was removed. The patient was then awakened from anesthesia and was brought to the PACU in stable condition. I attest to the content of the Intraoperative Record and any orders documented therein. Any exceptions are noted below.
--- NOTE | 2023-08-02 15:36 | Fluoroscopy Report ---
INTRAOPERATIVE RADIOGRAPH CLINICAL HISTORY: Left ureteral stent placement. Fluoro time: 13 seconds Ka,r: 3.40 mGy FINDINGS: A single spot fluoroscopic image of the left abdomen is correlated with abdominal CT dated 08/01/2023. The image shows the proximal end of a left ureteral stent in appropriate position. Questi on a stone fragment in the ureter along the course of the stent. IMPRESSION: Intraoperative image from a left ureteral stent placement procedure as above. Electronically signed by: John Flores M.D. 08/02/2023 3:34 PM
--- NOTE | 2023-08-02 16:09 | Anesthesiology Progress Note ---
Date of Service August 02, 2023 Anesthesia Post Procedure Vital Signs Vital Signs: Temp Pulse Pulse Pulse Resp BP BP 08/02/23 15:08 36.4 C L 99 H 20 149/110 H 08/02/23 14:07 36.4 C L 104 H 20 154/105 H 08/02/23 07:11 94 H 08/02/23 06:00 67 16 133/100 08/02/23 04:00 75 25 H 147/106 H 08/02/23 03:21 79 20 158/113 H 08/02/23 02:47 95 H 14 168/123 H 08/02/23 02:24 91 H 08/02/23 02:05 89 20 08/02/23 00:04 90 14 151/111 H 08/01/23 21:10 08/01/23 21:09 85 18 171/119 H 08/01/23 19:26 99 H 14 153/87 H 08/01/23 17:40 08/01/23 17:24 95 H 18 167/116 H Pulse Ox O2 Del Method 08/02/23 15:08 97 Room Air 08/02/23 14:07 97 Room Air 08/02/23 07:11 08/02/23 06:00 99 08/02/23 04:00 98 08/02/23 03:21 92 08/02/23 02:47 95 08/02/23 02:24 08/02/23 02:05 93 08/02/23 00:04 96 08/01/23 21:10 95 Room Air 08/01/23 21:09 94 Room Air 08/01/23 19:26 95 Room Air 08/01/23 17:40 99 Room Air 08/01/23 17:24 99 Room Air Pain Intensity Flank: Pain Intensity: 2 Transfer of Care Handoff Completed per policy Notes Mental Status: alert / awake / arousable Patient Amnestic to Procedure: Yes Nausea / Vomiting: adequately controlled Pain: adequately controlled Airway Patency, RR, SpO2: stable & adequate BP & HR: stable & adequate Hydration State: stable & adequate Anesthetic Complications: no major complications apparent and Pt Satisfied with anesthetic care
--- NOTE | 2023-08-02 21:18 | Hospitalist Progress Note ---
Date of Service August 02, 2023 Assessment & Plan (1) Obstruction of left ureteropelvic junction due to stone: Plan: -Admit to med/tele -Currently hemodynamically stable and stable on RA -Presented to the ED with acute onset of left lower abd pain and associate na usea/vomiting -Found to have an 8 mm stone at left ureteropelvic with moderate hydronephrosis and perinephric fluid -UA does not appear infected -Unsure of baseline Cr, currently at 1.48 -Continue pain control with tylenol and morphine -Continue flomax -PRN zofran for nausea/vomiting -Urine strainer ordered -Will continue light IV fluids overnight for hydration -Urology consult placed -Stent placed on 08/02 Patient though is tachycardic. (2) Abdominal pain: Plan: -Likely due to his known left ureteropelvic stone -Labs and CT of the abd/pelvis without other signs to suggest other etiology at this time -Rest of care per obstrcution plan (3) Nausea & vomiting: Plan: -Continue prn zofran Admission and Anticipated Discharge Date Admission Date: August 01, 2023 Subjective Patient reports no new symptoms status post stent placement. Review of Systems Review of Systems: All systems reviewed & are unremarkable except as noted in HPI & below Physical Exam Physical Exam: General: In no acute distress, stated age, well-nourished, good hygiene HEENT: Normocephalic, atraumatic Chest/Pulm: No respiratory distress, symmetrical chest expansion, clear breath sounds throughout Cardiac: tachycardic, no murmurs noted Abdomen: NTD, soft : Negative CVA tenderness BL Extremities: Radial, dorsalis pedis, and posterior tibial pulses are intact and symmetrical, no edema noted in the BL LE's Skin: Warm, dry, no rashes , lesions, or scars noted Neuro: Alert and oriented to person, place, month, year, and president, no focal defects, no tremors noted Psych: No acute distress, calm and cooperative during the exam Results & Data Results & Data Vital Signs (Past 12 Hours) Vital Signs Temp Pulse Pulse Resp BP Pulse Ox O2 Del Method 08/02/23 18:30 102 H 17 142/95 H 96 Room Air 08/02/23 18:00 89 17 130/94 97 Room Air 08/02/23 17:30 88 14 130/94 99 Room Air 08/02/23 17:00 82 16 130/94 99 Room Air 08/02/23 16:45 77 17 133/95 99 Room Air 08/02/23 16:30 75 12 127/97 99 Room Air 08/02/23 16:15 80 14 136/88 99 Room Air 08/02/23 16:00 90 16 143/88 H 100 Room Air 08/02/23 15:55 36.8 C 88 14 140/88 100 Room Air 08/02/23 15:45 89 14 145/96 H 100 Room Air 08/02/23 15:35 85 16 147/103 H 100 Room Air 08/02/23 15:25 93 H 14 148/107 H 100 Room Air 08/02/23 15:15 93 H 15 152/108 H 99 Room Air 08/02/23 15:08 37 C 99 H 20 149/110 H 97 Room Air 08/02/23 14:07 36.4 C L 104 H 20 154/105 H 97 Room Air PG Care Time/CCT Total # of Minutes Spent Total Time Spent with Patient: Total time spent is greater than 50% in coordination of care (as documented) at patient's floor/unit and/or counseling patient: Coding Level of Care Code 04934 SUB INP/OBS CARE 2/35MIN Diagnoses Obstruction of left ureteropelvic junction due to stone N20.1 Abdominal pain R10.9 Nausea & vomiting R11.2
[2023-08-03] MEDS: TAMSULOSIN HCL 0.4 MG CAP PO SCH (08:03)
[2023-08-03 09:20] LABS: Basophils # (auto) 0.03 K/uL (0.00-0.20); Basophils % (auto) 0.3 %; Eosinophils # (auto) 0.12 K/uL (0.00-0.50); Eosinophils % (auto) 1.1 %; Hematocrit (blood only) 43.6 % (42.0-52.0); Hemoglobin 14.6 g/dl (14.0-18.0); Immature Granulocytes # (auto) 0.04 K/uL (0.01-0.20); Immature Granulocytes % (auto) 0.4 %; Lymphocytes # (auto) 2.75 K/uL (1.20-3.40); Lymphocytes % (auto) 26.3 %; Mean Corpuscular Hemoglobin 28.6 pg (25.0-34.0); Mean Corpuscular Hgb Conc 33.5 g/dL (32.0-36.0); Mean Corpuscular Volume 85.5 fL (80.0-100.0); Mean Platelet Volume 10.4 fL (9.4-12.4); Monocytes # (auto) 0.84 K/uL (0.11-0.59); Neutrophils # (auto) 6.67 K/uL (1.40-6.50); Neutrophils % (auto) 63.9 %; Platelet Count 258 K/uL (130-400); RDW Standard Deviation 40.7 fL (36.4-46.3); White Blood Count 10.45 K/ul (4.8-10.8)
[2023-08-03 09:36] LABS: BUN Creatinine Ratio 13.9 (10-20); Calcium 9.3 mg/dl (8.6-10.3); Creatinine Clr Calc Pharmacy 62.4 ml/min; Est GFR (African American) 68.2 ml/min; Est GFR (Non-African American) 58.9 ml/min; Potassium 4.1 mmol/L (3.5-5.1)
--- NOTE | 2023-08-03 13:15 | Discharge Summary ---
Date of Service August 03, 2023 Admission HPI Per Admitting Provider Tylor is a 52 year old male who lives in [place] but is in the [place] visiting family with no significant PMH who presented to the [facility] ED on 08/01 with multiple episodes of nausea and vomiting. He remained stable in the ED. Labs including CBC and CMP were unremarkable. UA shows 1+ protein, 1+ ketones, 3+ blood, and > 30 RBC but no signs of infection. Chest xray was negative for acute findings. CT of the abd/pelvis wo con was read as "1. which results in mild to moderate left hydronephrosis with moderate perinephric fluid. 2. Several punctate left renal calculi.". The patient was given 1L NSS, 15 mg IV toradol, 4 mg IV morphine, 0.5 mg IV dilaudid, 4 mg IV zofran, and 0.4 mg PO tamsulosin without significant improvement in his symptoms. The ED spoke with Urology who recommended admission to medicine for pain control, NPO at midnight, and possible stent placement tomorrow. AT the time of the exam the patient was lying in bed in no acute distress. He confirms that he has no significant PMH. He had been in his normal state of health until this am when he started to develop left lower abdominal pain. He states that at it's worst it is a 10/10, intermittent, sharp/stabbing, and has radiated to the middle of his abdomen at times. He tried to drink coffee and soda earlier today but vomited after each and has not tried to eat solid food today. He denies recent fever, chills, chest pain, SOB, hemoptysis, dysuria, hematuria, melena, diarrhea, LE swelling and recent trauma. He does not use tobacco or alcohol. His pain is currently a 3/10 after additional pain medications in the ED. He is a Full Code and would want his Aunt, Stella Jack ([phone]), to make medical decisions for him if he could not make them himself. Please refer to Dr. Piedra's attestation for any changes to the treatment plan Discharge Data Allergies Allergy/AdvReac Type Severity Reaction Status Date / Time No Known Allergies Allergy Verified 08/01/23 19:46 Consultations 08/01/23 19:43 ED Decision to Admit Stat 08/01/23 20:22 Consult Urology Routine Procedures Performed Operation Date: 08/02/23 11:50 Actual Procedures p Cystoscopy, Left retrograde pyleogram, Left Ureteral Stent Placement(Left) - Dominguez Woodruff MD Ordered Studies 08/01/23 16:15 CT abd pelvis wo con Stat 08/02/23 [place] retrograde includes kub Routine Hospital Course (1) Obstruction of left ureteropelvic junction due to stone: -Admit to med/tele -Currently hemodynamically stable and stable on RA -Presented to the ED with acute onset of left lower abd pain and associate nausea/vomiting -Found to have an 8 mm stone at left ureteropelvic with moderate hydronephrosis and perinephric fluid -UA does not appear infected -Unsure of baseline Cr, currently at 1.48 -Continue pain control with tylenol and morphine -Continue flomax -PRN zofran for nausea/vomiting -Urine strainer ordered -Will continue light IV fluids overnight for hydration -Urology consult placed -Stent placed on 08/02 Patient though is tachycardic. (2) Abdominal pain: -Likely due to his known left ureteropelvic stone -Labs and CT of the abd/pelvis without other signs to suggest other etiology at this time -Rest of care per obstrcution plan (3) Nausea & vomiting: -Continue prn zofran Discharge Plan Discharge Items Patient Disposition: Home - Self-Care Reason For Visit: LEFT OBSTRUCTION KIDNEY STONE, UNCONTROLLED PAIN Discharge Diagnosis: left kidney stone, uncontrolled pain Condition on Discharge: Good Activity: Resume your previous activity Non-emergency contact: Primary Care Provider Call non-emergency contact if: you have any medication questions Follow-up/Referrals: PCP,NO [Primary Care Provider] - Diet: Regular Addtl Attending Provider Instructions: Continue taking tamsulosin (flomax) daily. Recommend followup within 1 month to followup with Urolgy Pending Studies at Discharge: No Stand-Alone Forms: My [employer], Smoking Cessation Medications and DC Order Prescriptions: New tamsulosin 0.4 mg Capsule 0.4 mg PO QAM Qty: 30 0RF Discharge Orders: Discharge Order (Routine); Ordered 08/03/23 Ordered By: Mark Mckinney Admission Data Admit Date/Time: 08/01/23 20:04 Attending Provider: Mark Mckinney Admit Provider: Venus Piedra Primary Care Provider: PCP,NO Other Providers: Venus Piedra; Alfred Valdivia. Coding Diagnoses Obstruction of left ureteropelvic junction due to stone N20.1 Abdominal pain R10.9 Nausea & vomiting R11.2
[2023-08-03] MEDS: MoRPHine SULFATE 2 MG/ML CARP IV PRN (14:00)
[2023-08-03] MEDS ORDERED: oxyBUTYnin chloride 5 MG TAB PO STA (14:53)
[2023-08-03] MEDS ORDERED: PHENAZOPYRIDINE HCL 200 MG TAB PO STA (14:54)
[2023-08-03] MEDS ORDERED: PHENAZOPYRIDINE HCL 200 MG TAB PO PRN (14:54)
--- NOTE | 2023-08-03 15:56 | Urology Progress Note ---
Date of Service August 03, 2023 Assessment & Plan (1) Obstruction of left ureteropelvic junction due to stone: (2) Renal colic: Plan 52yo/M admitted with intractable left flank pain secondary to an obstructing 8 mm left UPJ stone - POD #1 s/p cystoscopy and left stent placement - He is afebrile and hemodynamically stable. - Labs today show no leukocytosis and normal creatinine - Urinalysis not suggestive of infection. - Okay to d/c from perspective when medically stable - Recommend d/c with Tamsulosin, prn Pyridium, prn oxybutynin and prn pain medication for stent management - Expected clinical course reviewed, all questions answered - Will arrange outpatient follow-up with our service - Urology will sign-off. Please contact us any further questions or concerns Admission and Anticipated Discharge Date Admission Date: August 01, 2023 Subjective Pt examined at bedside this afternoon. Awake, resting in bed on arrival. No acute distress. Tolerating ureteral stent with minimal bother. Reports some hematuria and dysuria with voiding. No fevers. Review of Systems Constitutional: as per Subjective / HPI Gastrointestinal: as per Subjective / HPI Genitourinary: + as per Subjective / HPI Physical Exam Constitutional: no acute distress Respiratory: no respiratory distress and no labored breathing Neurologic: moves all extremities and awake Psychiatric: A+Ox3, euthymic affect Results & Data Vital Signs (Past 12 Hours) Vital Signs Temp Pulse Pulse Resp BP Pulse Ox O2 Del Method 08/03/23 11:32 36.8 C 84 14 139/104 H 96 Room Air 08/03/23 07:55 36.7 C 86 13 136/88 96 Room Air 08/03/23 07:26 79 08/03/23 02:54 36.5 C 86 16 129/86 96 Room Air PG Care Time/CCT Total # of Minutes Spent Total Time Spent with Patient: Total time spent is greater than 50% in coordination of care (as documented) at patient's floor/unit and/or counseling patient: Coding Level of Care Code 75189 SUB INP/OBS CARE 2/35MIN Diagnoses Obstruction of left ureteropelvic junction due to stone N20.1 Renal colic N23
[2023-08-03] MEDS: oxyBUTYnin chloride 5 MG TAB PO SCH (20:45)
--- NOTE | 2023-08-03 21:44 | Hospitalist Progress Note ---
Date of Service August 03, 2023 Assessment & Plan (1) Obstruction of left ureteropelvic junction due to stone: Plan: -Admit to med/tele -Currently hemodynamically stable and stable on RA -Presented to the ED with acute onset of left lower abd pain and associate na usea/vomiting -Found to have an 8 mm stone at left ureteropelvic with moderate hydronephrosis and perinephric fluid -UA does not appear infected -Unsure of baseline Cr, currently at 1.48 -Continue pain control with tylenol and morphine -Continue flomax -PRN zofran for nausea/vomiting -Urine strainer ordered -Will continue light IV fluids overnight for hydration -Urology consult placed -Stent placed on 08/02 Vitals are stable on 08/03 but patient is now having dysuria, and hematuria. Patient does not feel comfortable with discharge. Reassured patient and Urology did as well. Added oxybutynin and pyridium (2) Abdominal pain: Plan: -Likely due to his known left ureteropelvic stone -Labs and CT of the abd/pelvis without other signs to suggest other etiology at this time -Rest of care per obstrcution plan (3) Nausea & vomiting: Plan: -Continue prn zofran Admission and Anticipated Discharge Date Admission Date: August 01, 2023 Subjective Patient reports having pain when he urinates. He is also noticing clots when he pees. Review of Systems Review of Systems: All systems reviewed & are unremarkable except as noted in HPI & below Physical Exam Physical Exam: General: In no acute distress, stated age, well-nourished, good hygiene HEENT: Normocephalic, atraumatic Chest/Pulm: No respiratory distress, symmetrical chest expansion, clear breath sounds throughout Cardiac: tachycardic, no murmurs noted Abdomen: NTD, soft : Negative CVA tenderness BL Extremities: Radial, dorsalis pedis, and posterior tibial pulses are intact and symmetrical, no edema noted in the BL LE's Skin: Warm, dry, no rashes , lesions, or scars noted Neuro: Alert and oriented to person, place, month, year, and president, no focal defects, no tremors noted Psych: No acute distress, calm and cooperative during the exam Results & Data Results & Data Vital Signs (Past 12 Hours) Vital Signs Temp Pulse Pulse Pulse Resp BP Pulse Ox 08/03/23 19:36 36.9 C 76 18 134/95 94 08/03/23 15:48 36.7 C 83 13 135/91 93 08/03/23 15:00 86 08/03/23 11:32 36.8 C 84 14 139/104 H 96 O2 Del Method 08/03/23 19:36 Room Air 08/03/23 15:48 Room Air 08/03/23 15:00 08/03/23 11:32 Room Air PG Care Time/CCT Total # of Minutes Spent Total Time Spent with Patient: Total time spent is greater than 50% in coordination of care (as documented) at patient's floor/unit and/or counseling patient: Coding Level of Care Code 54677 SUB INP/OBS CARE 3/50MIN Diagnoses Obstruction of left ureteropelvic junction due to stone N20.1 Abdominal pain R10.9 Nausea & vomiting R11.2 Time Spent (min) 50
[2023-08-04 08:28] LABS: Basophils # (auto) 0.05 K/uL (0.00-0.20); Basophils % (auto) 0.6 %; Eosinophils # (auto) 0.31 K/uL (0.00-0.50); Eosinophils % (auto) 3.8 %; Hematocrit (blood only) 44.4 % (42.0-52.0); Hemoglobin 14.7 g/dl (14.0-18.0); Immature Granulocytes # (auto) 0.02 K/uL (0.01-0.20); Immature Granulocytes % (auto) 0.2 %; Lymphocytes # (auto) 3.28 K/uL (1.20-3.40); Lymphocytes % (auto) 40.2 %; Mean Corpuscular Hemoglobin 28.2 pg (25.0-34.0); Mean Corpuscular Hgb Conc 33.1 g/dL (32.0-36.0); Mean Corpuscular Volume 85.2 fL (80.0-100.0); Mean Platelet Volume 10.5 fL (9.4-12.4); Monocytes # (auto) 0.73 K/uL (0.11-0.59); Monocytes % (auto) 8.9 %; Neutrophils # (auto) 3.77 K/uL (1.40-6.50); Neutrophils % (auto) 46.3 %; Platelet Count 248 K/uL (130-400); RDW Standard Deviation 40.4 fL (36.4-46.3); Red Blood Count 5.21 M/uL (4.70-6.10); White Blood Count 8.16 K/ul (4.8-10.8)
[2023-08-04 08:44] LABS: BUN Creatinine Ratio 15.6 (10-20); Calcium 9.2 mg/dl (8.6-10.3); Creatinine Clr Calc Pharmacy 67.6 ml/min; Est GFR (African American) 74.1 ml/min; Est GFR (Non-African American) 63.9 ml/min; Magnesium 1.8 mg/dl (1.7-2.4)
[2023-08-04] MEDS: TAMSULOSIN HCL 0.4 MG CAP PO SCH (09:56)
[2023-08-04] MEDS: oxyBUTYnin chloride 5 MG TAB PO SCH (09:56)
--- NOTE | 2023-08-04 11:42 | Discharge Summary ---
Date of Service August 04, 2023 Admission HPI Per Admitting Provider Tylor is a 52 year old male who lives in [place] but is [place] the [place] visiting family with no significant PMH who presented to the [facility] ED on 08/01 with multiple episodes of nausea and vomiting. He remained stable in the ED. Labs including CBC and CMP were unremarkable. UA shows 1+ protein, 1+ ketones, 3+ blood, and > 30 RBC but no signs of infection. Chest xray was negative for acute findings. CT of the abd/pelvis wo con was read as "1. which results in mild to moderate left hydronephrosis with moderate perinephric fluid. 2. Several punctate left renal calculi.". The patient was given 1L NSS, 15 mg IV toradol, 4 mg IV morphine, 0.5 mg IV dilaudid, 4 mg IV zofran, and 0.4 mg PO tamsulosin without significant improvement in his symptoms. The ED spoke with Urology who recommended admission to medicine for pain control, NPO at midnight, and possible stent placement tomorrow. AT the time of the exam the patient was lying in bed in no acute distress. He confirms that he has no significant PMH. He had been in his normal state of health until this am when he started to develop left lower abdominal pain. He states that at it's worst it is a 10/10, intermittent, sharp/stabbing, and has radiated to the middle of his abdomen at times. He tried to drink coffee and soda earlier today but vomited after each and has not tried to eat solid food today. He denies recent fever, chills, chest pain, SOB, hemoptysis, dysuria, hematuria, melena, diarrhea, LE swelling and recent trauma. He does not use tobacco or alcohol. His pain is currently a 3/10 after additional pain medications in the ED. He is a Full Code and would want his Aunt, Stella Jack ([phone]), to make medical decisions for him if he could not make them himself. Principal Diagnosis left ureteral stone Discharge Exam General: In no acute distress, stated age, well-nourished, good hygiene HEENT: Normocephalic, atraumatic Chest/Pulm: No respiratory distress, symmetrical chest expansion, clear breath sounds throughout Cardiac: RRR Abdomen: NTD, soft : Negative CVA tenderness BL Extremities: Radial, dorsalis pedis, and posterior tibial pulses are intact and symmetrical, no edema noted in the BL LE's Psych: No acute distress, calm and cooperative during the exam Discharge Data Allergies Allergy/AdvReac Type Severity Reaction Status Date / Time No Known Allergies Allergy Verified 08/01/23 19:46 Consultations 08/01/23 19:43 ED Decision to Admit Stat 08/01/23 20:22 Consult Urology Routine Procedures Performed Operation Date: 08/02/23 11:50 Actual Procedures p Cystoscopy, Left retrograde pyleogram, Left Ureteral Stent Placement(Left) - Dominguez Woodruff MD Ordered Studies 08/01/23 16:15 CT abd pelvis wo con Stat 08/02/23 [place] retrograde includes kub Routine Hospital Course (1) Obstruction of left ureteropelvic junction due to stone: -Admit to med/tele -Currently hemodynamically stable and stable on RA -Presented to the ED with acute onset of left lower abd pain and associate nausea/vomiting -Found to have an 8 mm stone at left ureteropelvic with moderate hydronephrosis and perinephric fluid -UA does not appear infected -Unsure of baseline Cr, currently at 1.48, creatinine improved. -Continue pain control with tylenol and morphine -Continue flomax -Urology consult placed -ureteral Stent placed on 08/02 Vitals are stable since 08/03 Patient with dysuria, and hematuria; improved with oxybutynin and pyridium. Patient will followup with Urology as an outpatient. (2) Abdominal pain: -Likely due to his known left ureteropelvic stone -Labs and CT of the abd/pelvis without other signs to suggest other etiology at this time -Rest of care per obstrcution plan (3) Nausea & vomiting: -Continue prn zofran Total Time Total Time Spent Total Time Spent (In Minutes): 32 Discharge Plan Discharge Items Patient Disposition: Home - Self-Care Reason For Visit: LEFT OBSTRUCTION KIDNEY STONE, UNCONTROLLED PAIN Discharge Diagnosis: left kidney stone, uncontrolled pain Condition on Discharge: Good Activity: Resume your previous activity Non-emergency contact: Primary Care Provider Call non-emergency contact if: you have any medication questions Follow-up/Referrals: PCP,NO [Primary Care Provider] - Diet: Regular Addtl Attending Provider Instructions: Continue taking tamsulosin (flomax) daily. Recommend followup within 1 month to followup with Urology The pyridium may cause your urine to be orange. Addtl [employer] Provider Instructions: Please take all medications as prescribed and keep all follow-ups as scheduled. Please call the urology office at [phone] with any questions, concerns or need to reschedule appointments for any reason. We are happy to assist you. The procedure you had was cystoscopy and ureteral stent placement. The urology office will contact you to arrange a follow-up visit to discuss stone treatment. While you have a ureteral stent in place: Some discomfort is normal. Certain movements may trigger pain or a feeling that you need to urinate. You may also feel mild soreness or pressure before or during urination. Your urine may be slightly pink or red. This is due to bleeding caused by minor irritation from the stent. This may happen on and off while you have the stent, it is not harmful and is to be expected. Medication to help minimize discomfort or bladder spasms, or to prevent infection may be prescribed. Take this as directed. Drink plenty of fluids to help flush out your urinary tract. When to call [facility] at [phone]: Your urine contains heavy blood clots or you are unable to urinate You are constantly leaking urine Fever of 101F or higher, chills, nausea, or vomiting Your pain is not relieved with medication The end of the stent comes out of your urethra Pending Studies at Discharge: No Stand-Alone Forms: My [facility], Smoking Cessation Medications and DC Order Prescriptions: New tamsulosin 0.4 mg Capsule 0.4 mg PO QAM Qty: 30 0RF phenazopyridine [Pyridium] 200 mg Tablet 200 mg PO TID PRN (Reason: penile pain) 3 Days Qty: 8 0RF oxybutynin chloride 5 mg Tablet 5 mg PO BID Qty: 10 0RF Discharge Orders: Discharge Order (Routine); Ordered 08/04/23 Ordered By: Mark Mckinney Admission Data Admit Date/Time: 08/01/23 20:04 Attending Provider: Mark Mckinney Admit Provider: Venus Piedra Primary Care Provider: PCP,NO Other Providers: Venus Piedra; Alfred Valdivia Coding Level of Care Code 96240 INP/OBS DISCH >30 MIN Diagnoses Obstruction of left ureteropelvic junction due to stone N20.1 Abdominal pain R10.9 Nausea & vomiting R11.2
== END 2023-08-04 13:19 | disposition home or self-care (01) | DRG 661 ==
LOC: ED 12:51 → EDINP 20:04 → SUATTDRO 20:04 → EDINP 08-02 14:05 → 2W 08-02 19:45
DX: N13.2 Hydronephrosis with renal and ureteral calculous obstruction